=== PATIENT | male | born 1980 | race Caucasian/White ===

== ENCOUNTER 2024-04-18 05:11 | Day surgery (SDC) | payer BC ==
[2024-04-08 14:33] VITALS: BMI 20.6
[2024-04-18 09:13] VITALS: RESP 16; TEMP 97.2
[2024-04-18 10:01] VITALS: PULSE 60
[2024-04-18 13:59] VITALS: BP 114/72
== END 2024-04-18 10:00 | disposition home or self-care (01) ==
LOC: JASU-ENDO 05:11
PROVIDERS: ATTEND Internal Medicine Gastroenterology
PROC: 0DJD8ZZ Inspection of Lower Intestinal Tract, Via Natural or Artificial Opening Endoscopic (ICD-10-PCS; principal; 2024-04-18 09:00)
DX: Z12.11 Encounter for screening for malignant neoplasm of colon (principal); K64.8 Other hemorrhoids